=== PATIENT | female | born 1970 | race Two or more races ===

== ENCOUNTER 2017-07-26 12:30 | Emergency (ER) | payer SELFPAY ==
[~2017-07-26] VITALS: Ht 170.2 cm; Wt 102.1 kg
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
--- NOTE | 2017-07-26 12:55 | NUR ---
SARA BOCANEGRA IS AT THE BEDSIDE.
[2017-07-26] MEDS ORDERED: IBUPROFEN 600 MG TABLET PO ONE ×2 (13:30→13:43)
--- NOTE | 2017-07-26 13:48 | NUR ---
PT IS GOING TO [facility] [employer].
--- NOTE | 2017-07-26 14:30 | NUR ---
PT RECEIVED ICE FOR RUE.
[2017-07-26] MEDS ORDERED: HYDROCODONE/APAP 5/325MG 1 EACH TABLET ONE (15:07)
--- NOTE | 2017-07-26 15:11 | NUR ---
PT STATED THAT SHE CAN HAVE NORCO WITHOUT ANY SIDE EFFECTS. SARA GONCALVES IS AT THE BEDSIDE SPEAKING TO THE PT.
--- NOTE | 2017-07-26 15:12 | NUR ---
Patient discharged to home in stable condition. Written and verbal after care instructions given. Patient verbalizes understanding of instruction AND RX. PT'S FAMILY AND PT ARE WAITING IN THE LOBBY FOR P/U.
--- NOTE | 2017-07-26 15:12 | NUR ---
PT AMBULATED OUT WITH A STEADY GAIT.
[2017-07-26 15:17] VITALS: BP 148/87
[2017-07-26] MEDS ORDERED: HYDROCODONE/APAP 5/325MG 1 EACH TABLET PO ONE (15:30)
== END 2017-07-26 15:18 | disposition home or self-care (01) ==
LOC: ER 12:32
DX: S13.9XXA Sprain of joints and ligaments of unspecified parts of neck, initial encounter (principal); S50.11XA Contusion of right forearm, initial encounter; Z88.6 Allergy status to analgesic agent; V43 Car occupant injured in collision with car, pick-up truck or van; Y93.89 Activity, other specified; Y92.413 State road as the place of occurrence of the external cause; Y99.8 Other external cause status
CPT/HCPCS: 70450; 72040; 73090; 99284; A4606; Z7610